=== PATIENT | female | born 1980 | race Caucasian/White ===

== ENCOUNTER 2021-10-30 17:24 | Emergency (ER) | payer OTHER, SELFPAY ==
[2021-10-30] VITALS (12 sets, daily range): BP systolic 124–149; BP diastolic 77–106; PULSE 64–141; RESP 7–22; TEMP 36.9; O2SAT 98–100
--- NOTE | ~2021-10-30 | XR_ITS ---
XR chest 2V DATE: 10/30/2021 17:56 INDICATION: Chest pain TECHNIQUE: 2 views, PA and lateral projections COMPARISON: None FINDINGS: Normal heart size. No hilar or mediastinal enlargement. No pulmonary infiltrate or consolid ation, pleural effusion or pulmonary vascular congestion or pneumothorax. IMPRESSION: Negative Reviewed, dictated and finalized at location A. NGUAL MANAGER IMPRESSION: Negative
--- NOTE | 2021-10-30 17:26 | ECG_ITS ---
Measurements Intervals [place] Rate: 128 P: 71 MO: 88 QRS: 76 QRSD: 86 T: 60 QT: 361 QTc: 527 Interpretive Statements SINUS TACHYCARDIA WITH SHORT MO INTERVAL NONSPECIFIC ST & T-WAVE ABNORMALITY- ANTEROLAT/INF LEADS ABNORMAL ECG Electronically Signed On 10-30-2021 20:38:04 SOUS CHEF by You De La Rosa D.O.
[2021-10-30] MEDS: SODIUM CHLORIDE 0.9% IV 1,000 ML 999 ML IV CONT (18:17)
[2021-10-30 18:19] LABS: Basophils Absolute Auto 0.1 K/mm3 (0.0-0.1); Basophils Percent Auto 0.7 % (0.2-1.2); Eosinophils Absolute Auto 0.1 K/mm3 (0-0.3); Hematocrit 42.5 % (37.0-47.0); Hemoglobin 14.6 g/dL (12.0-15.0); Immature Granulocyte Absolute 0.04 K/mm3 (0.00-0.031); Immature Granulocyte Percent A 0.4 % (0-0.5); Lymphocytes Percent Auto 20.2 % (18.3-44.2); Mean Corpuscular HGB Conc 34.4 g/dl (32-36); Mean Corpuscular Hemoglobin 29.3 pg (26-34); Mean Corpuscular Volume 85.3 fl (80-100); Mean Platelet Volume 10.7 fl (7.4-10.4); Monocytes Absolute Auto 0.6 K/mm3 (0.1-0.6); Monocytes Percent Auto 6.7 % (2.6-8.5); Neutrophils Absolute Auto 6.3 K/mm3 (1.3-6.7); Platelet Count Result 189 k/mm3 (150-375); Red Blood Count 4.98 M/mm3 (4.2-5.4); White Blood Count 8.9 K/mm3 (4.5-10.0)
--- NOTE | 2021-10-30 18:25 | ED.CHESTPAIN ---
HPI - Chest Pain General Chief Complaint: Chest Pain Stated Complaint: Covid Positive - Chest pain Time Seen by Provider: 10/30/21 18:09 Source: patient Mode of arrival: ambulatory Limitations: no limitations History of Present Illness HPI narrative: This is a 41 year old female that presents to the ER for chest pain present over the last couple of days. Reports she tested positive for Covid 4 days ago. Reports rhinorrhea and a mild cough. Reports over the last couple of days she has noted some intermittent chest soreness. Worse when she gets up and walks around. She does not feel short of breath. She has also had some lightheadedness. She feels as though she is having palpitations. Feels like her heart is beating out of her chest . Denies fever or lower extremity edema. Related Data Allergies Allergy/AdvReac Type Severity Reaction Status Date / Time No Known Allergies Allergy Unknown Verified 10/11/19 20:39 Review of Systems Review of Systems: CONSTITUTIONAL: Denies fever CARDIOVASCULAR: Reports chest pain, palpitations. Denies edema. RESPIRATORY: Reports cough. Denies dyspnea. All systems reviewed & are unremarkable except as noted in HPI and below PMFSH Surgical History Surgical History (Updated 10/11/19 @ 20:53 by Inez Hodge PA-C) History of section Social History Social History (Updated 10/11/19 @ 20:54 by Inez Hodge PA-C) Smoking status: Never smoker Gender identity (if verbalized by the patient): Female Exam Narrative: GENERAL: Well-appearing, well-nourished, and in no acute distress. HEAD: Normocephalic, atraumatic. EYES: EOMI. ENT: Nares clear, no rhinorrhea or epistaxis. Mucous membranes moist. Oropharynx without tonsillar hypertrophy exudate or other lesions. Bilateral TMs pearly potter non-bulging NECK: Supple. No adenopathy or masses. CHEST: Clear to auscultation. No respiratory distress. No wheezes rales or rhonchi HEART: Regular rate and rhythm. No murmur heard. Normal peripheral pulses. EXTREMITIES: Normal range of motion. No edema. SKIN: Warm, dry, no rash. NEURO: No focal deficits. Alert and oriented x3. PSYCH: Normal mood and affect Course Vital Signs Vital signs: Vital Signs Temperature 98.5 F 10/30/21 17:30 Pulse Rate 141 H 10/30/21 17:30 Respiratory Rate 20 10/30/21 17:30 Blood Pressure 149/100 H 10/30/21 17:30 Pulse Oximetry 100 10/30/21 17:30 Temperature 98.5 F 10/30/21 17:30 Pulse Rate 74 10/30/21 20:54 Respiratory Rate 22 H 10/30/21 20:54 Blood Pressure 124/86 10/30/21 20:54 Pulse Oximetry 98 10/30/21 20:54 MDM - Chest Pain MDM Narrative Medical decision making narrative: Patient presents to the ER for chest pain and lightheadedness. Recent COVID diagnosis. She is not vaccinated. Patient is afebrile and nontoxic appearing. Tachycardic upon arrival. This normalized with IV fluids administration. CBC and metabolic panel without concerning findings. EKG with nonspecific changes, baseline inferior troponin are negative. D-dimer is not elevated. Chest x-ray without acute cardiopulmonary abnormality. Patient hydrated with IV fluids with relief. She was updated on case findings. She was instructed on continued care of viral infection. Discharged to have close follow-up with her primary doctor for feelings of lightheadedness and palpitations for further evaluation with heart monitor. She was given warnings to return to the ER Lab Data Attestation: I reviewed the patient's lab results. Result diagrams: 10/30/21 18:05 10/30/21 18:05 Labs: Lab Results 10/30/21 10/30/21 10/30/21 Range/Units 18:05 18:05 18:05 WBC 8.9 (4.5-10.0) K/mm3 RBC 4.98 (4.2-5.4) M/mm3 Hgb 14.6 (12.0-15.0) g/dL Hct 42.5 (37.0-47.0) % MCV 85.3 (80-100) fl MCH 29.3 (26-34) pg MCHC 34.4 (32-36) g/dl RDW 12.0 (11.5-14.5) % Plt Count 189 (150-375) k/mm3 MPV 10.7 H (7
[2021-10-30 18:30] LABS: Alanine Aminotransferase 20 U/L (4-35); Albumin Level 4.7 g/dL (3.5-5.1); Alkaline Phosphatase 61 U/L (38-126); Anion Gap 8 mmol/L (8-16); Aspartate Amino Transferase 27 U/L (14-36); Bilirubin,Total 0.4 mg/dL (0.2-1.3); Blood Urea Nitrogen 19 mg/dL (7-17); Calcium 9.5 mg/dL (8.4-10.2); Carbon Dioxide 25 mmol/L (22-30); Chloride 105 mmol/L (98-107); Estimated CRCL calculation 76 ml/min; Estimated Glomerular Filt Rate > 60; Glucose 100 mg/dL (65-110); INR 0.9; Lipase 77 U/L (23-300); Potassium 3.7 mmol/L (3.4-5.0); Prothrombin Time 12.5 Seconds (11.1-14.7); Sodium 138 mmol/L (137-145)
[2021-10-30 18:31] LABS: Partial Thromboplastin Time 27.1 SECONDS (22.3-36.8)
[2021-10-30 18:41] LABS: Troponin I < 0.012 ng/mL (0.000-0.034)
[2021-10-30 18:43] LABS: D Dimer 0.27 ug/mL (<0.48)
[2021-10-30 21:22] LABS: Troponin I < 0.012 ng/mL (0.000-0.034)
== END 2021-10-30 22:13 | disposition home or self-care (01) ==
PROVIDERS: Emergency Provider Emergency Medicine; PCP Family Medicine
DX: U07.1 COVID-19 (principal); R07.9 Chest pain, unspecified; R42 Dizziness and giddiness; R94.31 Abnormal electrocardiogram [ECG] [EKG]; R00.0 Tachycardia, unspecified
CPT/HCPCS: 36415; 71046; 80053; 81025; 83690; 84484; 85025; 85380; 85610; 85730; 93005; 99284; J7030

== ENCOUNTER 2023-08-08 17:06 | Emergency (ER) | payer OTHER, SELFPAY ==
--- NOTE | ~2023-08-08 | XR_ITS ---
EXAMINATION: XR chest 2V Exam Date/Time: 08/08/2023 17:30 TALENT SPECIALIST HISTORY: CHEST CONGESTION, FEVER, PRODUCTIVE COUGH Comparison: 10/30/2021. RESULT: Lines, tubes, and devices: None. Lungs and pleura: Clear. Cardiomediastinal silhouette: Stable. Other: No acute osseous or upper abdominal finding. IMPRESSION: No acute cardiopulmonary process. Reviewed, dictated and finalized at location K. NT SPECIALIST
[2023-08-08 17:17] VITALS: BP 120/85; PULSE 127; RESP 16; TEMP 37.7; O2SAT 98
--- NOTE | 2023-08-08 17:29 | ED.URI ---
HPI - URI/Sore Throat General Chief Complaint: Upper Respiratory Infection Stated Complaint: Cough;Bodyache;Fever;Headache Time Seen by Provider: 08/08/23 17:20 Source: patient Mode of arrival: ambulatory Limitations: no limitations History of Present Illness HPI Narrative: [place] is a 43-year-old female patient presenting to the clinic today with complaints of fever, chest congestion, shortness of breath, cough, body aches, sore throat, and headache. Symptoms have been roughly going on for approximately 5 days. Productive cough with clear phlegm. Concerned she may have pneumonia. MD elicited complaint: fever, cough, sore throat, nasal congestion and other (Shortness of breath, body aches) Related Data Home Medications Medication Instructions Recorded Confirmed No Home Medications 08/08/23 08/08/23 Allergies Allergy/AdvReac Type Severity Reaction Status Date / Time No Known Allergies Allergy Unknown Verified 08/08/23 17:46 Review of Systems Review of Systems: Pertinent positives per HPI. Patient denies any rash, visual changes, dizziness, chest pain, palpitations, nausea, vomiting, diarrhea, constipation, abdominal pain, or any urinary issues. [facility] Surgical History Surgical History History of section Social History Social History Smoking status: Never smoker Gender identity (if verbalized by the patient): Female Comments At the time of my signature, I reviewed and agree with the nursing past medical, surgical, social, and family history. There is no relevant family history pertinent to the patient complaint. Exam Narrative: General: Well-developed, well nourished, in no apparent distress Head: Normocephalic, atraumatic Eyes: Pupils equally round and reactive to light bilaterally, EOM intact, sclera and conjunctive clear, no discharge, lids normal Ears: TMs intact and congested ear canals clear, no drainage, grossly hearing normal. Nose: Nares patent, clear discharge, no inflammation, no sinus tenderness. Mouth: Oral pharynx without lesions or masses, good dentition, MMM. Neck: Supple, trachea midline, no enlargement of anterior or posterior cervical nodes, no thyroid masses or goiter palpable. Cardio: Regular rate and rhythm, s1 and s2 normal, no murmur appreciated. Resp: Clear to auscultation bilaterally, no rhonchi, rales, wheezing or rubs Course Course Emergency Course: Portions of this record may have been created with voice recognition software. Level of Care: Express Care Visit Vital Signs Vital signs: Vital Signs Temperature 37.7 C H 08/08/23 17:17 Pulse Rate 127 H 08/08/23 17:17 Respiratory Rate 16 08/08/23 17:17 Blood Pressure 120/85 08/08/23 17:17 Pulse Oximetry 98 08/08/23 17:17 Temperature 37.7 C H 08/08/23 17:17 Pulse Rate 127 H 08/08/23 17:17 Respiratory Rate 16 08/08/23 17:17 Blood Pressure 120/85 08/08/23 17:17 Pulse Oximetry 98 08/08/23 17:17 Vital signs reviewed MDM - URI/Sore Throat MDM Narrative Medical decision making narrative: At the time of visit patient is resting comfortably on the exam table. Strep screen and chest x-ray was obtained. Chest x-ray was negative for any sign pneumonia. Strep screen was negative. We will send strep for culture. Supportive measures were discussed with the patient she voiced understanding discharge instructions agrees to treatment plan. Differential Diagnosis Differential diagnosis: Likely upper respiratory infection, otitis media, sinusitis, viral infection, bronchitis, influenza, pharyngitis and other (COVID) Discharge Plan Discharge Clinical Impression: Viral infection Upper respiratory infection Qualifiers: URI type: unspecified URI Qualified Code(s): J06.9 - Acute upper respiratory infection, unspecified Pharyngitis Qualifiers: Pharyngi
== END 2023-08-08 17:57 | disposition home or self-care (01) ==
PROVIDERS: Emergency Provider Nurse Practitioner Family
DX: B34.9 Viral infection, unspecified (principal); J06.9 Acute upper respiratory infection, unspecified; J02.9 Acute pharyngitis, unspecified
CPT/HCPCS: 71046; 87081; 87880; 99213; G0463